=== PATIENT | male | born 1970 | race African-American/Black ===

== ENCOUNTER 2016-10-24 17:13 | Emergency (ER) | payer OTHER ==
--- NOTE | ~2016-10-24 | CT71 ---
[facility] A Service of [facility] RADIOLOGY TEXT RESULTS PATIENT: RAQUEL ABAD LOCATION: [facility] : 74 UNIT #: [id number] AGE: [address]: Isidro Perez MD SEX: M ORDER DR: [id number] [facility] [address] [place], [place] [address] [id number] MR#: [id number] Acc #: [id number] NAME: RAQUEL ABAD. : 1970 SEX: M STUDY DATE/TIME: 10/24/2016 20:30 UNIT: [facility] ROOM: STUDY DESCRIPTION: CT Head Wo Contrast Attending Physician: Isidro Perez M.D. Ordering Physician: Isidro Perez M.D. Primary Care Physician: Kia Pierce Aprn [facility] MEDICAL IMAGING REPORT This report is preliminary unless electronic signature is present EXAM Head CT without contrast, 10/24/2016 HISTORY Headaches for [address] exam was performed with one or more of the following radiation dose reduction techniques: automatic exposure control, adjustment of mA and/or kV according to patient size, and iterative reconstruction. FINDINGS Multiple axial images were obtained from the skull base to vertex without intravenous contrast administration. The ventricles are normal in size, shape and position. There is no evidence of midline shift. There is no mass or mass effect, hemorrhage or acute infarct. There is mucosal thickening in the ethmoid sinuses. IMPRESSION 1. No acute intracranial abnormality. 2. Mucosal thickening in the ethmoid sinuses. Dictated by... Albin Hayes M.D. THIS IS AN ELECTRONICALLY VERIFIED REPORT Albin Hayes M.D. at 10/25/2016 2:20 PM JOEY/[email or web address] TD: 10/25/2016 01:44 JOB #: [id number] [facility] A Service of [facility] RADIOLOGY TEXT RESULTS PATIENT: RAQUEL ABAD LOCATION: [facility] : 74 UNIT #: [id number] AGE: [address]: Isidro Perez MD SEX: M ORDER DR: MEDICAL IMAGING REPORT Page 1 of 1 COPY
[~2016-10-24 17:13] MED LIST: ALBUTEROL17 GM INH; FLONASE16 GM; HYCODAN60 ML 5MG/ PO; IBUPROFEN800 MG PO; MEDROL4 MG/DOSE- PO; NO MEDICATIONS; PERCOCET PO; PHENERGAN DM1 ML PO; VIBRAMYCIN100 M1 PO; ZYRTEC PO
[2016-10-24 20:24] LABS: BASOPHIL# 0.1 X10e3 (0-0.3); BASOPHIL% 0.8 % (0-2.5); EOSINOPHIL# 0.3 X10e3 (0-0.7); EOSINOPHIL% 2.9 % (0.0-7.0); HEMATOCRIT 40.2 % (38.0-50.0); LYMPHOCYTE# 2.4 X10e3 (1.0-3.5); LYMPHOCYTE% 20.5 % (17.0-45.0); MEAN CELL VOLUME 89.3 FL (83-96); MEAN CORPUSCULAR HEMOGLOBIN 28.8 PG (28-34); MEAN CORPUSCULAR HGB CONC 32.3 g/dL (30-36); MEAN PLATELET VOLUME 8.4 FL (6.5-11.5); MONOCYTE# 1.1 X10e3 (0-1.0); MONOCYTE% 9.3 % (3.0-12.0); NEUTROPHIL# 7.7 X10e3 (1.5-7.1); NEUTROPHIL% 66.5 % (40-75); PLATELET COUNT 243 X10e3 (140-420); RED CELL DISTRIBUTION WIDTH 13.1 % (11.0-15.5); WHITE BLOOD COUNT 11.6 X10e3 (4.0-10.5)
[2016-10-24 20:33] LABS: DIFF IND NO
[2016-10-24 20:50] LABS: BUN/CREATININE RATIO 6.92; CALCIUM SERUM 8.3 mg/dL (8.4-10.2); CREATININE SERUM 1.3 mg/dL (0.6-1.4); GLOM FILT RATE Estimated 76.9 mL/min (>60); POTASSIUM 3.3 mmol/L (3.5-5.1)
== END 2016-10-24 23:25 | disposition home or self-care (01) ==
LOC: CED 17:13
PROVIDERS: Emergency Medicine
DX: G44.209 Tension-type headache, unspecified, not intractable (principal); F17.200 Nicotine dependence, unspecified, uncomplicated
CPT/HCPCS: 36415; 70450; 80048; 85025; 96374; 96375; 99284; J1200; J1885; J2765